=== PATIENT | male | born 1990 | race Caucasian/White ===

== ENCOUNTER 2021-02-08 14:00 | Outpatient (REF) | payer SELFPAY ==
[2021-02-08 14:48] LABS: Influenza A PCR NEGATIVE (Negative); Influenza B PCR NEGATIVE (Negative); Resp Syncy Virus RNA Qual PCR NEGATIVE (Negative); SARS COV2 PCR INHOUSE POSITIVE (Negative)
== END 2021-02-08 14:01 | disposition home or self-care (01) ==
LOC: HO.LNP 14:00
PROVIDERS: Visit Provider Internal Medicine
DX: R43.9 Unspecified disturbances of smell and taste (principal); Z20.822 Contact with and (suspected) exposure to COVID-19
CPT/HCPCS: 0241U

== ENCOUNTER 2022-10-17 06:41 | Emergency (ER) | payer OTHER, SELFPAY ==
--- NOTE | ~2022-10-17 | CT_ITS ---
EXAMINATION: CT ABDOMEN AND PELVIS WITHOUT CONTRAST CLINICAL INFORMATION: Right flank pain. COMPARISON: None available. TECHNIQUE: Multidetector volumetric imaging was performed from the superior aspect of the liver through the pubic symphysis. Sagittal and coronal reformatted images were obtained on the technologist's workstation. This CT examination was performed using dose optimization techniques as appropriate, variously including the following: *Automated exposure control *Adjustment of mA and/or kV according to patient size (this includes techniques or standardized protocols for targeted exams where dose is matched to indication/reason for exam; i.e. extremities or head) *Use of iterative reconstruction technique DLP: 922 mGy-cm FINDINGS: LUNG BASES: The visualized lung bases are unremarkable. LIVER, GALLBLADDER, AND BILIARY TREE: The liver is normal in size, shape, and diffusely hypoattenuated. No focal hepatic lesion or biliary ductal dilatation is present. The gallbladder is unremarkable with no evidence of radiopaque gallstones, gallbladder wall thickening, or obvious pericholecystic inflammatory changes. PANCREAS: Unremarkable. SPLEEN: Unremarkable. . ADRENAL GLANDS: Unremarkable. KIDNEYS AND URETERS: The kidneys are normal in size, shape, and attenuation. There is a 4 mm right UVJ stone with mild hydroureteronephrosis. No radiopaque calculi seen in the kidneys. No left hydronephrosis seen. No perinephric stranding visualized. BLADDER: The bladder wall is thickened measuring 4 mm likely from underdistention GASTROINTESTINAL TRACT: There is scattered stool and gas seen in colon without distention. The small bowel loops are normal caliber. Appendix is normal caliber. ABDOMINAL WALL: No significant hernia is appreciated. LYMPH NODES: Normal. VASCULAR: Unremarkable. PELVIC VISCERA: Unremarkable. OSSEOUS STRUCTURES: Mild degenerative disc changes seen in the lower dorsal spine from T9-T10 through T12-L1 disc level. There is mild anterior wedging of T10, T11 and T12 vertebra likely remote injury. Correlate with clinical history. CT/CT abdomen pelvis wo IV con IMPRESSION: 4 mm obstructive right UVJ stone with mild hydroureteronephrosis. Mild hepatic steatosis Fleischner guidelines were followed.
[2022-10-17 06:57] VITALS: BP 155/91; PULSE 104; RESP 19; TEMP 36.6; O2SAT 98; BMI 44.1
--- NOTE | 2022-10-17 06:58 | ED_ITS ---
HPI - General Adult General Chief complaint: Urogenital-Male Stated complaint: Flank pain/?Kidney Stones Time Seen by Provider: 10/17/22 06:56 Source: patient Mode of arrival: ambulatory Limitations: no limitations History of Present Illness HPI narrative: Patient is a 32 year old healthy male presenting with right sided flank pain X few weeks worsening over th past few days =--. He explains that the pain was be en intermittent for the past month. Has been seen by urgent care recently who told him this may be a kidney stone. Denies changes in urination, changes in his urine or pain with urination. No fevers, chills, nause, vomiting, urrinary sx, saddle paresthesias, urine/bowel incontinence/ retention. Related Data Previous Rx's Medication Instructions Recorded morphine 15 mg immediate release 15 mg PO Q6H PRN pain 5 days #10 10/17/22 tablet tabs naproxen 375 mg tablet 375 mg PO BID PRN pain #20 tabs 10/17/22 ondansetron 4 mg disintegrating 4 mg PO Q6H PRN nausea and 10/17/22 tablet vomiting #14 tabs prednisone 20 mg tablet 20 mg PO DAILY 5 days #5 tabs 10/17/22 tamsulosin 0.4 mg capsule (Flomax) 0.4 mg PO DAILY 2 weeks #14 caps 10/17/22 Allergies Allergy/AdvReac Type Severity Reaction Status Date / Time No Known Allergies Allergy Verified 10/17/22 06:56 Review of Systems Review of Systems: Constitutional : No Weight loss, No Fever, No Chills, No Fatigue, No Malaise ENT/Mouth : No sore throat, No Rhinorrhea Eyes: No Eye Pain, No Swelling, No Redness Cardiovascular : No Chest Pain, No SOB, No Dyspnea on Exertion, No Orthopnea, No Edema, No Palpitations Respiratory : No Cough, No Sputum, No Wheezing Gastrointestinal : No Nausea, No Vomiting, No Diarrhea, No Constipation, No abdominal Pain, No Hematochezia, No Melena Genitourinary : No Dysuria, No Urinary Frequency, No Hematuria, Musculoskeletal : +Right flank pain, No joint pain, No Myalgias, No Joint Swelling Skin : No Skin Lesions, No rash Neuro : No Weakness, No Numbness, No Dizziness, No Headache Psych : No Anxiety/Panic, No Depression All other systems reviewed and are negative Yes all other systems are reviewed and are negative [facility] Past Medical History Attestation statement: The following information was validated with the patient. Source: old records reviewed and nursing notes reviewed Social History Social History Alcohol intake: current Alcohol intake frequency: holidays/special occasions only Patient Tobacco Use Status: Never used Tobacco Smoked in Last 30 Days: No Use of substances other than those prescribed or required for medical reasons: No Advance Directives: No Advance Directives Information Provided: No Physical Exam ED Vital Signs: Vital Signs - 24 hr 10/17/22 06:57 10/17/22 08:58 Temperature 98 F 98.6 F Pulse Rate 104 H 92 Respiratory Rate 19 16 Blood Pressure 155/91 H 138/88 Pulse Oximetry 98 97 Oxygen Delivery Method Room Air Room Air BMI result Body Mass Index 44.1 vss Appearance: Alert.? Oriented X3.? No acute distress.? Head: Normocephalic, atraumatic, no step-offs or deformities Eyes: Pupils equal, round and reactive to light.? CVS: Normal heart rate and rhythm.? Respiratory: No respiratory distress.? Abdomen: Soft and nontender.? Skin: Skin warm and dry.? Normal skin color.? Normal skin turgor.? Extremities: No lower extremity edema.? No calf ttp. 5/5 strength to bilateral upper and lower extremities Back: +tenderness to the right flank, No midline tenderness, no C-spine tenderness, full range of motion Neuro: Oriented X 3.? No motor deficit.? No sensory deficit. CN 2-12 intact Course Reevaluation(s) Reevaluation #1: CBC unremarkable. Chemistry no acute findings requiring intervention however transaminases are noted to be elevated in a 2-1 fashion likely secondary to alcohol use. UA with trace leukocyte esterases, urine RBCs present, no bacteria no signs of UA, blood likely secondary to stone. CT abdomen pelvis with a 4 mm obstructing right UVJ stone with mild hydro, fluids, Toradol, prednisone and Flomax ordered. Will reach out to Urology for input. Time: 08:48 Reevaluation #2: Discuss this case with Urology who recommends Flomax, prednisone for 3 days and naproxen. Also recommends pain meds for breakthrough pain. Educated patient on diagnosis and treatment plan, answered all question, patient verbalizes understanding. At this time patient will be discharged home, advised to return with new or worsening symptoms. Educated on worrisome signs and symptoms and when to return. At this time I feel comfortable discharge home. Time: 09:04 Medications Administered Generic Name Dose Route Start Last Admin Trade Name Freq PRN Reason Stop Dose Admin Sodium Chloride 1,000 mls @ 999 mls/hr 10/17/22 08:30 10/17/22 08:28 Ns IV 10/17/22 09:30 999 mls/hr .Q1H1M MARCOS Administration Discontinued Medications Generic Name Dose Route Start Last Admin Trade Name Freq PRN Reason Stop Dose Admin Ketorolac Tromethamine 30 mg 10/17/22 06:59 10/17/22 07:13 Ketorolac Tromethamine 15 Mg/Ml Vial IM 10/17/22 07:00 30 mg ONCE ONE Administration Prednisone 20 mg 10/17/22 08:45 10/17/22 08:58 Prednisone 20 Mg Tablet PO 10/17/22 08:46 20 mg ONCE ONE Administration Tamsulosin HCl 0.4 mg 10/17/22 08:45 10/17/22 08:58 Tamsulosin Hcl 0.4 Mg Capsule PO 10/17/22 08:46 0.4 mg ONCE ONE Administration Medical Decision Making Medical Decision Making [facility] Narrative: 0720 32 year old male presenting with intermittent right flank pain lasting one month worsening recently Exam significant for right flank tenderness. This is likely nephrolithiasis. Unlikely cystitis, pyelonephritis due to lack of fever, chills, or urinary symptoms. Unlikely muscle spasms, sprain or strain due to lack of trauma or injury. Unlikely cauda equina due to lack of trauma, incontinence or paresthesias no signs of epidural abscess or cord compression. Plan: labs, urine, imaging Differential Diagnosis Differential Diagnoses: The differential diagnosis associated with the presentation includes This is likely nephrolithiasis. Unlikely cystitis, pyelonephritis due to lack o f fever, chills, or urinary symptoms. Unlikely muscle spasms, sprain or strain due to lack of trauma or injury. Unlikely cauda equina due to lack of trauma, incontinence or paresthesias. no signs of epidural abscess or cord compression. Admission/Observation Consideration of admission/observation: Escalation of care including admiss ion/observation considered Not indicated. Consult Healthcare Provider Management of the patient was discussed with: [employer] (Uroloy Dr. Samayoa ) Lab Data [facility] Lab Attestation statement: I reviewed the patient's lab results. 10/17/22 07:25 10/17/22 07:26 Labs: Lab Results 10/17/22 10/17/22 10/17/22 Range/Units 07:25 07:26 07:43 WBC 10.0 (4.8-10.8) X10*3/uL RBC 5.32 (4.60-5.80) X10*6/uL Hgb 16.6 (14.0-18.0) g/dl Hct 47.3 (42.0-52.0) % MCV 88.9 (80.0-98.0) fL MCH 31.2 (27.0-33.0) pg MCHC 35.1 (31.0-36.0) g/dl RDW 12.6 (11.0-16.0) % Plt Count 347 (160-400) X10*3/uL MPV 9.8 (9.4-12.4) fL Immature Gran % (Auto) 0.5 H (0.0-0.4) % Neut % (Auto) 66.1 (45-73) % Lymph % (Auto) 23.8 (20-40) % [facility] % (Auto) 7.6 (2-11) % Eos % (Auto) 1.3 (0-4) % Baso % (Auto) 0.7 (0-2) % Lymph # (Auto) 2.4 (1.2-4.9) X10*3/uL [facility] # (Auto) 0.8 (0.1-1.2) X10*3/uL Eos # (Auto) 0.1 (0.0-0.4) X10*3/uL Baso # (Auto) 0.1 (0.0-0.2) X10*3/uL Abs Immat Gran (auto) 0.05 H (0.00-0.03) X10*3/uL Absolute Neuts (auto) 6.6 (2.0-8.3) x10*3/uL Absolute Nucleated RBC 0.000 (0.0-0.012) X10*3/uL Nucleated RBC % (auto) 0.0 (0.0-0.2) /100WBC Sodium 142 (135-145) mmol/L Potassium 3.3 (3.3-5.1) mmol/L Chloride 106 (96-108) mmol/L Carbon Dioxide 25 (22-29) mmol/L Anion Gap 14 (12-20) BUN 10 (9-16) mg/dL Creatinine 1.14 (0.5-1.4) mg/dL Estim Creat Clear Calc 113.4 Estimated GFR > 60 Random Glucose 97 (60-115) mg/dL Calcium 9.6 (8.4-10.2) mg/dL Magnesium 1.6 (1.6-2.6) mg/dL Total Bilirubin 1.0 (0.0-1.0) mg/dL AST 54 H (5-37) U/L ALT 107 H (0-40) U/L Alkaline Phosphatase 53 (39-117) U/L Total Protein 7.7 (6.5-8.0) g/dL Albumin 4.3 (3.5-5.0) g/dL Urine Color Yellow Urine Appearance Clear Urine pH 7.0 (5.0-9.0) Ur Specific Anderson 1.020 (1.005-1.025) Urine Protein Negative (Neg-Trace) mg/dL Urine Glucose (UA) Negative (Negative) mg/dL Urine Ketones Negative (Negative) mg/dL Urine Blood Negative (Negative) Urine Nitrite Negative (Negative) Ur Leukocyte Esterase Trace H (Negative) Urine RBC 3-5 H (0-2) /HPF Urine WBC 0-5 (0-5) /HPF Ur Squamous Epith Cells 3-5 (0-2) /HPF Urine Bacteria None Seen (None Seen) Hyaline Casts 0-2 (0-2) /LPF Independent Interpretation I performed an independent interpretation of an: CT Scan (CT/CT abdomen pelvis wo IV con IMPRESSION: 4 mm obstructive right UVJ stone with mild hydroureteronephrosis. Mild hepatic steatosis ) Radiology Impression Discussion of test interpretation with radiology: I have reviewed the radiologist's reading. Prescription Management I considered prescription management with: Pain Medication Tordal 30 for pain. Core Measures AMI core measures followed: Yes Measure exclusions: not indicated Critical Care Time Critical Care Time Critical Care Time: Yes Total Critical Care Time: 35 Attestation: I attest to this time spent taking care of the patient, obtaining history, physical, reviewing labs, imaging, speaking to my attending, speaking to specialist. Discharge Plan Discharge Clinical Impression: Kidney calculi, Hydronephrosis Patient Disposition: Home, Self-Care Instructions: Kidney Stones (ED) Additional Instructions: Toradol has been sent to your pharmacy, you tolerated this well in the department. Please take this as prescribed do not take this with ibuprofen, or other NSAIDs, do not mix this with alcohol. Side effects of this medication including increased risk for bleeding and possible kidney injury. A narcotic has been sent to your pharmacy please take this as prescribed. Do not take more than the prescribed dose. Narcotic medications can cause addiction. Please do not mix them with alcohol. Do not take them while driving or operating machinery. Do not take them with any other narcotics. Do not share them with friends or family. They can cause constipation. Take them only for severe pain. Take your medications as prescribed. If you were prescribed antibiotics today, it is important that you take your medication to their entirety, do not skip any doses, do not finish them early. Follow-up with your primary care provider this week. Return to the emergency department with new or worsening symptoms. Such as fevers, chills, chest pain, shortness of breath, nausea, vomiting, dizziness, headache, vision changes, lethargy In case of emergency call 911 CT/CT abdomen pelvis wo IV con IMPRESSION: 4 mm obstructive right UVJ stone with mild hydroureteronephrosis. ? Mild hepatic steatosis ? ? ? Fleischner guidelines were followed. Prescriptions: New tamsulosin [Flomax] 0.4 mg capsule 0.4 mg PO DAILY 14 Days Qty: 14 0RF naproxen 375 mg tablet 375 mg PO BID PRN (Reason: pain) Qty: 20 0RF prednisone 20 mg tablet 20 mg PO DAILY 5 Days Qty: 5 0RF morphine 15 mg tablet 15 mg PO Q6H PRN (Reason: pain) 5 Days Qty: 10 0RF Rx Instructions: Partial Fill upon patient request. ondansetron 4 mg tablet,disintegrating 4 mg PO Q6H PRN (Reason: nausea and vomiting) Qty: 14 0RF Referrals: [facility] [Provider Group] - 1 week Physician,None [Primary Care Provider] - 2 days Stand Alone Forms: Work/School Release
[2022-10-17] MEDS: Ketorolac Tromethamine 15 MG/ML VIAL 30 MG IM (07:13)
--- NOTE | 2022-10-17 07:17 | PC.NURSE ---
pt a&ox3. respirations even and unlabored. skin warm pink and dry. pt reporting right flank pain for 2 months that comes and goes. pt reports being seen at [facility] for a UTI in august. pt denies blood in urine, pain with urination, and frequency. pt denies n/v and chest pain. right flank non tender to touch. vss.
[2022-10-17 07:29] LABS: MANUAL DIFF FLAG NO
[2022-10-17 07:31] LABS: Basophils Absolute Auto 0.1 X10*3/uL (0.0-0.2); Basophils Percent Auto 0.7 % (0-2); Eosinophils Absolute Auto 0.1 X10*3/uL (0.0-0.4); Eosinophils Percent Auto 1.3 % (0-4); Hematocrit 47.3 % (42.0-52.0); Hemoglobin 16.6 g/dl (14.0-18.0); Imm Gran Abs Auto 0.05 X10*3/uL (0.00-0.03); Imm Gran Pct Auto 0.5 % (0.0-0.4); Lymphocytes Absolute Auto 2.4 X10*3/uL (1.2-4.9); Lymphocytes Percent Auto 23.8 % (20-40); Mean Corpuscular HGB Conc 35.1 g/dl (31.0-36.0); Mean Corpuscular Hemoglobin 31.2 pg (27.0-33.0); Mean Corpuscular Volume 88.9 fL (80.0-98.0); Mean Platelet Volume 9.8 fL (9.4-12.4); Monocytes Absolute Auto 0.8 X10*3/uL (0.1-1.2); Monocytes Percent Auto 7.6 % (2-11); Neutrophils Absolute Auto 6.6 x10*3/uL (2.0-8.3); Neutrophils Percent Auto 66.1 % (45-73); Platelet Count 347 X10*3/uL (160-400); Red Blood Count 5.32 X10*6/uL (4.60-5.80); Red Cell Distribution Width 12.6 % (11.0-16.0)
[2022-10-17 07:43] LABS: Alanine Aminotransferase 107 U/L (0-40); Albumin Level 4.3 g/dL (3.5-5.0); Alkaline Phosphatase 53 U/L (39-117); Anion Gap 14 (12-20); Aspartate Amino Transferase 54 U/L (5-37); Blood Urea Nitrogen 10 mg/dL (9-16); Calcium 9.6 mg/dL (8.4-10.2); Carbon Dioxide 25 mmol/L (22-29); Chloride 106 mmol/L (96-108); Creatinine Clr Calc Pharmacy 113.4; Estimated Glomerular Filt Rate > 60; Glucose Random 97 mg/dL (60-115); Magnesium 1.6 mg/dL (1.6-2.6); Potassium 3.3 mmol/L (3.3-5.1); Sodium 142 mmol/L (135-145); Total Protein 7.7 g/dL (6.5-8.0)
[2022-10-17 08:13] LABS: Appearance Urine Clear; Color Urine Yellow; Glucose Urine UA Negative (Negative); Leukocyte Esterase Urine Trace (Negative); Nitrite Urine Negative (Negative); UMIC TRIGGER UACC YES; Urine Blood Negative (Negative); Urine Ketones Negative (Negative); Urine Protein Negative (Neg-Trace)
[2022-10-17 08:18] LABS: Bacteria Urine None Seen (None Seen); Hyaline Casts Urine 0-2 /LPF (0-2); WBC Urine 0-5 /HPF (0-5)
[2022-10-17] MEDS: 0.9 % Sodium Chloride 1,000 ML 999 ML IV ×2 (08:28→09:52)
[2022-10-17 08:58] VITALS: BP 138/88; PULSE 92; RESP 16; TEMP 37; O2SAT 97
[2022-10-17] MEDS: predniSONE 20 MG TABLET PO (08:58)
[2022-10-17] MEDS: Tamsulosin HCL 0.4 MG CAPSULE PO (08:58)
== END 2022-10-17 11:29 | disposition home or self-care (01) ==
PROVIDERS: Physician Assistant; Emergency Provider Emergency Medicine
DX: N13.2 Hydronephrosis with renal and ureteral calculous obstruction (principal)
CPT/HCPCS: 36415; 74176; 80053; 81001; 81003; 83735; 85025; 96360; 96361; 96372; 99284; 99285; J1885